=== PATIENT | male | born 1935 | race Caucasian/White ===

== ENCOUNTER 2017-01-16 20:54 | Inpatient (IN) | payer MEDICARE ==
[~2017-01-16] VITALS: Ht 180.3 cm; Wt 103.1 kg
[~2017-01-16 20:54] MED LIST: ATRV10T PO; CARV6.25 PO; FURO40TA4 PO; GLIP2.5T2 PO; LISI2.5T PO; OMEG500C3 PO; POTA10TA38 PO; PRE10 PO
[2017-01-16 21:05] VITALS: BP 100/44; PULSE 80; RESP 23; O2SAT 96
[2017-01-16 21:26] VITALS: BP 94/40; PULSE 84; RESP 21; O2SAT 95
--- NOTE | 2017-01-16 21:26 | ED.REPORT ---
HPI-Trauma Minor / Fall Date of Service Jan 16, 2017 ED Provider: Jg Joseph MD The pt is an 81 y/o male with a hx of prostate cancer (on chemotherapy), CHF, DM , and HTN who presents to the ED via EMS complaining of a ground level fall after his "back gave out" just prior to arrival. He hit his back on the wall and his head on the shower door upon falling. He denies loss of consciousness, dizziness, abdominal pain, and any other sx. His BP en route was 80/62. His BP in the ED was 84/44 after 500ml of bolus. Code status: Full code Nursing Notes Stated Complaint: GLF,GENERAL WEAKNESS Chief Complaint: Multiple Trauma/Fall Nursing Notes Reviewed: Yes Allergies: Coded Allergies: acetaminophen (Verified Adverse Reaction, Severe, "I get saw-tooth kessler in my eyes", 03/02/15) Scheduled Atorvastatin (Lipitor) 10 Mg Tab 10 MG PO HS Carvedilol (Coreg) 6.25 Mg Tablet 6.25 MG PO DAILY Furosemide (Furosemide) 40 Mg Tablet 40 MG PO DAILY Glipizide ER (Glipizide ER) 2.5 Mg Tab.er.24 2.5 MG PO MORNING with breakfast. Lisinopril (Lisinopril) 2.5 Mg Tablet 2.5 MG PO DAILY [place]-3 Fatty Acids (Fish Oil) 500 Mg Capsule Unknown Dose PO DAILY clam oil supplement Potassium Chloride (Potassium Chloride) 10 Meq Tab.er.prt 20 MEQ PO DAILY TAKE WITH FOOD Prednisone (PredniSONE) 10 Mg Tablet 10 MG PO DAILY Scheduled PRN Spironolactone/HCTZ 25-25 mg (Spironolactone/HCTZ 25-25 mg) 1 Each Tablet 1 TABLET PO DAILY PRN PRN For Urinary Retention General Time Seen by MD: 21:19 Chief Complaint Fall Hx Obtained From: Patient Arrived By: Ambulance Onset Occurred: Just prior to arrival Symptom Duration: Since onset Severity: Current: No pain currently Severity: Maximum: No pain Recent Healthcare: No recent doctor visit Past Medical History Past Medical History 1. Metastatic castrate resistant prostate cancer, originally diagnosed with hormone sensitivity back in 2001. 2. Radiation to the lower lumbar spine and sacrum, completed December 08, 2013, with a correlative drop in PSA. 3. Diabetes. 4. Pleural effusions, fluid overload, managed by Dr. Arenas in the past. No malignancy found. 5. Overweight. 6. Negative bronchoscopy in 2010, associated with workup for pleural effusions. 7. Bone scan October 01, 2013, compared to September 2012 previous bone scan. September 2013 was stable, to perhaps even slightly improved, compared with the earlier. Past Surgical History Bilateral knee repair Hernia repair Smoking History Never Smoker Social History Alcohol Use: Denies alcohol use Drug Use: Denies drug use Other Social History: Ambulatory Status Independent Review of Systems Reports: back weakness Neurologic: Denies: Change LOC, Dizziness Complete sys rev & neg: except as marked. GI: Denies: Abdominal pain Physical Exam Initial Vital Signs Vital Signs (First) Date Time Temp Pulse Resp B/P Pulse Ox O2 Delivery O2 Flow Rate FiO2 01/16/17 21:05 36.7 80 23 100/44 96 Room Air Initial VS: Reviewed, Vital signs abnormal Head / Eyes: Atraumatic, Normocephalic Respiratory: Breath sounds normal, Clear to auscultation, No respiratory distress Abdomen / GI: Soft, Non-tender, No guarding, No rebound, No distention Extremities: Vascular intact, Neuro intact, No swelling, No tenderness Skin: Warm, Dry, No cyanosis Neurologic: Alert, Oriented, Nonfocal General/Constitutional: Awake, Alert, No acute distress, Cooperative Appearance / Presentation: Positive: Pale Not diaphoretic Neck: Atraumatic, Supple, Full range of motion, No swelling, Non-tender Cardiovascular: No gallop, No rubs, Pulses = bilaterally Heart Rate / Rhythm: Positive: Irregular rhythm Femoral pulses present bilaterally. III/ holosystolic murmur. Interpretation & Diagnostics CT abd and chest Conclusion: No aortic aneurysm or dissection. Diffuse osteosclerotic bony metastases. Enlarged right paratracheal lymph node. Right hepatic dome lesion, likely a hemangioma. Indeterminate hypodense anterior right liver lesion, possible a complex cyst, atypical hemangioma or metastasis. Small bilateral pleural effusions with dependent atelectasis/infiltrates. Signed by Dr. Sharon Ferreira 01/17/17 01:38 Lab Results Interpretation Result Diagram: 01/17/17 0415 01/16/17 2136 Test 01/16/17 21:36 01/16/17 21:41 01/17/17 00:00 Sodium Level 128mEq/L (134-144) Potassium Level 3.9mEq/L (3.5-5.2) Chloride Level 89mEq/L (97-108) Carbon Dioxide Level 18mmol/L (18-29) Blood Urea Nitrogen 25mg/dL (8-27) Creatinine 1.24mg/dL (0.76-1.27) Estimat Glomerular Filtration Rate 60mL/min (>59) Glucose Level 189mg/dL (60-99) Calcium Level 8.4mg/dL (8.5-10.1) Magnesium Level 2.2mg/dL (1.6-2.6) Total Bilirubin 0.6mg/dL (0.0-1.2) Aspartate Amino Transf (AST/SGOT) 21U/L (0-50) Alanine Aminotransferase (ALT/SGPT) 7U/L (0-44) Alkaline Phosphatase 234U/L (25-160) Pro-B-Type Natriuretic Peptide 1989pg/mL (0-486) Total Protein 6.7g/dL (6.4-8.4) Albumin 3.3g/dL (3.4-5.0) Prothrombin Time 12.0sec (8.1-12.5) Prothromb Time International Ratio 1.12ratio Urine Color Yellow (YELLOW) Urine Appearance Clear (CLEAR,HAZY) Urine pH 5.5 (5.0-8.0) Urine Specific [place] 1.010 (1.003-1.035) Urine Protein Tracemg/dL (NEG,TRACE) Urine Glucose (UA) Negativemg/dL (NEGATIVE) Urine Ketones Tracemg/dL (NEGATIVE) Urine Occult Blood Negative (NEGATIVE) Urine Nitrite Negative (NEGATIVE) Urine Bilirubin Negative (NEGATIVE) Urine Urobilinogen Normalmg/dL (NORMAL) Urine Leukocyte Esterase Negative (NEGATIVE) Urine RBC 0-2/hpf (0-2) Urine WBC 0-5/hpf (0-5) Urine Epithelial Cells Few/hpf (NONE-MOD) Urine Crystals None seen (NONE SEEN) Urine Bacteria Few/hpf (NONE-FEW) Urine Hyaline Casts None/lpf (NONE) Urine Granular Casts None seen (NONE SEEN) Urine Waxy Casts None seen (NONE SEEN) Urine Red Blood Cell Casts None seen (NONE SEEN) Urine White Blood Cell Casts None seen (NONE SEEN) Urine Mucus None seen (None Seen) Urine Trichomonas None seen (NONE SEEN) Urine Yeast None (NONE SEEN) Urinalysis Comment None Urine Culture Reflexed Not indicated Hold Urine Received (Received) Lab Results Interpretation: Anemia, mild elevation of nonfasting glucose ECG Interpretation ECG Interpretation: A-fib. Rate 83. Ventricular premature complex. RBBB and LAFB Time: 22:59 Interpreted by: ED physician CT Head Interpretation No CT evidence of hemorrhage, mass, or acute infarct. Signed by Dr. Eris Zuñiga 01/16/17 22:38 Study: Head CT no contrast Interpretation / Wet Read by: Interpret - Radiologist Re-Eval/Medical Decision Med Decision/Clinical Course 81-year-old male with couple of days of vascular instability as evidenced by cold extremities and lightheadedness with standing. He was cleaning the toilet and fell. This sounds like a syncopal episode although it's not real clear that he lost consciousness. He did hit his head. He is not on blood thinner and his CT scan is negative. He is noted to be in A. fib, and I can find no evidence of this previously in his record. He does not recall ever being told he had A. fib. His troponin is mildly elevated and he is quite anemic. EKG shows A. fib without ST or T-wave changes.. CT angio of his chest and abdomen shows no evidence of great vessel disease, but there is bilateral pleural effusions with atelectasis. He will be admitted to the hospital service. Source of Hx: Old records Re-Evaluation/Progress : Time of Eval: 01:42 Re-Evaluation/Progress Note: Rechecked pt. Discussed lab results, imaging results,diagnosis and plan to admit. Pt understands and agrees with the plan for admission. All questions addressed. Consultation : Referral / Consult Name: Federico Gottlieb MD Consulted With: Hospitalist Call Returned at: 02:28 Washer Engineer: Will see patient, Agrees with eval, Agrees with plan, Accepts admit Counseled Regarding: Diagnosis, Lab results, Need for admission Discharge & Departure Impression: Primary Impression: A-fib Atrial fibrillation type: unspecified Qualified Code: I48.91 - Unspecified atrial fibrillation Additional Impressions: Fall from ground level Syncope Syncope type: unspecified Qualified Code: R55 - Syncope and collapse HTN (hypertension) Hypertension type: unspecified secondary hypertension Qualified Code: I15.9 - Secondary hypertension, unspecified Disposition: ADMITTED TO HOSPITAL Referrals: Natalie Guillen PA-C Attestation Portions of this note were transcribed by Melissa Irene. I,, personally performed the history,physical exam and medical decision-making;I reviewed and confirmed the accuracy of the information in the transcribed note. Signed by Antonio Herrera. 01/16/17 copies to: Natalie Guillen PA-C, Howard L MD Jan 16, 2017 21:26 Melissa Irene Jan 16, 2017 21:34
[2017-01-16 21:31] VITALS: BP 102/50; PULSE 90; RESP 22; O2SAT 97
[2017-01-16] MEDS ORDERED: 0.9% Sodium Chloride 500 ML IV ONE (21:35)
[2017-01-16 21:39] LABS: BASOPHILS % (AUTO) 0.1 % (0-3); EOSINOPHILS % (AUTO) 0 % (0-5); MONOCYTES % (AUTO) 10.2 % (4-12); Mean Corpuscular Hemoglobin 26.1 pg (27.0-35.0); Mean Corpuscular Volume 80.8 fL (81-100); NEUTROPHILS % (AUTO) 75.2 % (40-74); Platelet Count 311 bil/L (150-400)
[2017-01-16 21:56] LABS: INR 1.12 ratio
[2017-01-16 22:06] LABS: Magnesium 2.2 mg/dL (1.6-2.6); TROPONIN T 0.021 ug/L (0.0-0.011)
[2017-01-16 22:11] VITALS: BP 100/54; PULSE 90; RESP 20; O2SAT 94
[2017-01-17] VITALS (11 sets, daily range): BP systolic 95–188; BP diastolic 47–69; PULSE 66–91; RESP 16–20; O2SAT 94–98
[2017-01-17] MEDS ORDERED: Polyethylene Glycol (PEG) 17 Gm Powder PO PRN (02:40)
[2017-01-17] MEDS ORDERED: Ondansetron 2 mg/mL 2 mL Inj IVPUSH PRN (02:40)
[2017-01-17] MEDS ORDERED: Alum-Mag Hydrox-Simeth 30 mL Suspension PO PRN (02:40)
--- NOTE | 2017-01-17 02:46 | PCM.HPMED ---
Subjective Date of Service Jan 17, 2017 Primary Provider: Admitting Physician: Primary Care Physician: Wilian,[facility] Residency Attending Physician: Chief Complaint: GLF History of Present Illness: 81-year-old gentleman with ten-year history of metastatic prostate cancer, type II diabetes, hypertension, NATY, and diastolic heart failure who presents to emergency department due to a ground-level fall suffered yesterday evening (01/16 ) while he was cleaning his bathroom. Per the patient he was bent over while scrubbing the toilet at which time his back spasmed and he was unable to become upright again. He states he then fell onto his back and hit his head, with a bouncing off the floor and door. He was then unable to get off the floor and his daughter called EMS. He denies ever losing consciousness, lightheadedness, dizziness, diplopia, chest pain or shortness of breath, or new neurological symptoms. Patient states he is not had a fall within the last year. In the emergency department the patient was given half a liter of normal saline ; CT of the head was negative for hemorrhage and CT abdomen and pelvis are available in appropriate section. Blood work demonstrated a white count of 11, decreasing hematocrit from 9.5-8.1 with a microcytic component, and normal platelets. Patient had a very mild troponin elevation, BMP and nearly 2000, and alkaline phosphatase that has doubled since his previous labs on 01/14. Review of Systems: Complete review of systems performed; pertinent positives and negatives per history of present illness, all other systems reviewed and are negative Allergies Coded Allergies: acetaminophen (Verified Adverse Reaction, Severe, "I get saw-tooth kessler in my eyes", 03/02/15) Home Medications Atorvastatin (Lipitor) 10 Mg Tab 10 MG PO HS Carvedilol (Coreg) 6.25 Mg Tablet 6.25 MG PO DAILY Furosemide (Furosemide) 40 Mg Tablet 40 MG PO DAILY Glipizide ER (Glipizide ER) 2.5 Mg Tab.er.24 2.5 MG PO MORNING with breakfast. Lisinopril (Lisinopril) 2.5 Mg Tablet 2.5 MG PO DAILY [place]-3 Fatty Acids (Fish Oil) 500 Mg Capsule Unknown Dose PO DAILY clam oil supplement Potassium Chloride (Potassium Chloride) 10 Meq Tab.er.prt 20 MEQ PO DAILY TAKE WITH FOOD Prednisone (PredniSONE) 10 Mg Tablet 10 MG PO DAILY PMH Metastatic prostate cancer Type II diabetes Obesity Hypertension NATY History of pleural effusions Diastolic heart failure Surgical History Orchiectomy Prostate resection Family History Father has an unknown health history Mother of leukemia Social History Hx Alcohol Use: Yes (very little ) Hx Substance Use: No Hx Tobacco Use: No Smoking Status: Never Smoker Exam Vital Signs Vital Sign - Last Date Time Temp Pulse Resp B/P Pulse Ox O2 Delivery O2 Flow Rate FiO2 01/17/17 01:20 81 17 107/56 98 Room Air 01/16/17 21:05 36.7 Intake and Output 01/16/17 01/16/17 01/17/17 Cumulative From/Thru 15:00 23:00 07:00 01/16/17 21:05 - 01/16/17 23:35 Intake Total 500 ml 500 ml Balance 500 ml 500 ml Intake IV Total 500 ml 500 ml Exam General: Pleasant appearing female/male, no acute distress HEENT: PERRLA, EOMI, nonicteric, membranes moist Lymph: No lymphadenopathy Cardio: Regular rate and rhythm no murmurs rubs or gallops Respiratory: CTA bilaterally, no wheezes, no crackles Abdomen: Soft, positive bowel sounds, nontender, nondistended Extremities: No edema, 4 x 4 strength, sensation intact Psych: Appropriate mood and affect Neuro: CN II through XII grossly intact, sensation intact throughout Skin: No rash Lab and Diagnostics Result Diagram: 01/16/17223301/16/172135 Assessment & Plan 81-year-old gentleman with ten-year history of metastatic prostate cancer, type II diabetes, hypertension, NATY, and diastolic heart failure who presents to emergency department due to a ground-level fall suffered yesterday evening (01/16 ) while he was cleaning his bathroom. Ground-level fall without syncope; present admission; ongoing -Patient had a fall at home with his head hitting the wall in the shower door -Initial CT negative for hemorrhage; official read pending -CT of the chest abdomen revealed no dissection or aneurysm -Neurochecks q2 hours -Patient able to take fluid PO -Orthostatics in am -Leukocytosis likely due to stress reaction New onset a-fib with mildly elevated troponin; present on admission; ongoing -Denies prior hx of a-fib -EKG consistent with A-fib and RBBB -Rate controlled at 83 -Currently holding anticoagulation until tomorrow for post traumatic observation Back pain second to spasm; present on admission; ongoing -Pain is improved since admission -Not on outpatient pain medications -Can treat with baclofen if needed, or OMT if purple team -1-2mg morphine for additional pain Elevated alkaline phosphatase; present on admission; ongoing -Previous elevation 2 days ago has now doubled, likely due to metastatic vs cysts/hemagioma seen on CT -Patient still has gallbladder but no other signs/symptoms of biliary obstruction -US of RUQ -Recheck in AM Hyponatremia with AG of 23; present on admission; ongoing -Urine osmolality and sodium ordered -No fluids as patient does not appear to be dry Microcytic hypochromic anemia; present on admission; ongoing -Presents with Hgb 9.5 that decreased to 8.1; MCV 80.8 and MCH 26.1 -Iron studies and follow-up with iron supplementation -Could also be due to his chemotherapy Type II diabetes; present on admission; ongoing -Last A1c was 6.1 last year -Home medication: Glipizide -Hold glipizide -Low dose correctional -Heart healthy/diabetic diet Metastatic prostate cancer-stable- last note by Dr. Medina reviewed; currently on Xtandi Hypertension-on lisinopril, spironolactone, coreg and torsemide NATY-to bring in home CPAP Diastolic heart failure- on lisinopril, spironolactone, coreg and torsemide Disposition: Patient has been admitted to the general medical floor under observation Pain Evaluation: Adequate Pain Control GI Prophylaxis: H2 chicho VTE Prophylaxis Indicated: Contraindicated Resuscitation Status: DNR/DNI:Do Not Resuscitate/Intubate Attending Statement The patient was seen and examined together with Dr. Brandon on 01/17 and I agree with the history, exam and plan as outlined in the note above. Jon Brandon DO Jan 17, 2017 02:46 Federico Gottlieb MD Jan 17, 2017 06:20
[2017-01-17 04:12] LABS: APPEARANCE,URINE CLEAR (CLEAR,HAZY); COLOR,URINE YELLOW (YELLOW); OCCULT BLOOD,URINE NEGATIVE (NEGATIVE); PH,URINE 5.5 (5.0-8.0); UROBILINOGEN,URINE NORMAL (NORMAL)
[2017-01-17 04:32] LABS: BASOPHILS % (AUTO) 0.1 % (0-3); EOSINOPHILS % (AUTO) 0.2 % (0-5); Mean Corpuscular Hemoglobin 25.4 pg (27.0-35.0); Mean Corpuscular Volume 80.9 fL (81-100); NEUTROPHILS % (AUTO) 66.3 % (40-74); Platelet Count 271 bil/L (150-400)
[2017-01-17] MEDS ORDERED: SPIR1TAB2 PO (04:35)
[2017-01-17] MEDS ORDERED: Glucose 40% Oral Gel 15 Gm Tube PO PRN (04:35)
--- NOTE | 2017-01-17 07:20 | NUR ---
Admit Admitted to room # 20020, with personal possessions, Room Air, Saline locked, A&O x3 using call light appropriately. Tele : A-fib 81's
[2017-01-17 07:42] LABS: Unsaturated Iron Binding 149.2 ug/dL
[2017-01-17] MEDS: Insulin LISPRO 300 Unit/3 mL Inj SUBQ SCH ×4 (07:58→21:27)
--- NOTE | 2017-01-17 08:07 | DRSVH ---
PROCEDURE: CT BRAIN WITHOUT CONTRAST ([id number]) INDICATIONS: back pain, syncope, hypotension, pallor TECHNIQUE: Noncontrast 4.5 mm thick angled axial sections acquired from the foramen magnum to the vertex, with c oronal reformats. COMPARISON: None. FINDINGS: Image quality: Excellent. CSF spaces: Basal cisterns are patent. No extra-axial fluid collections. The ventricles are symmet zee in size and shape. Brain: No intracranial bleeds or masses. There is cerebral volume loss for age, with resultant vent ricular and sulcal prominence. There are periventricular and deep white matter chronic small vessel ischemic changes. There is intracranial internal carotid artery atherosclerosis. Skull and face: Calvarium and visualized facial bones appear intact, without suspicious lesions. Sinuses: Visualized sinuses and mastoids are clear. IMPRESSION: Mild microvascular atherosclerotic change in the deep white matter of each hemisphere, an d no acute disease is found. No trauma after syncope is seen. Note: These findings are concordant with the preliminary interpretation. Dictated by: Cliff Gustafson M.D. on 01/17/2017 at 8:05 Approved by: Cliff Gustafson M.D. on 01/17/2017 at 8:05
[2017-01-17 08:24] LABS: OSMOLALITY, URINE 580 mOs/kH2O (250-1200)
--- NOTE | 2017-01-17 09:16 | DRSVH ---
PROCEDURE: CT ANG CHEST/ABD W/WO CONTRAST ([id number]) INDICATIONS: back pain, syncope, hypotension, pallor TECHNIQUE: Precontrast 5 mm thick sections acquired from the lung apices to the iliac crests. After the adminis tration of intravenous contrast, 3 mm thick sections again acquired from the lung apices to the iliac crests. 3-dimensional maximum intensity projection (MIP) oblique sagittal and coronal reformats wer e then acquired, and/or 3-dimensional volume rendering reformats. For radiation dose reduction, the following was used: automated exposure control. COMPARISON: [facility], CT, CT CHEST ABD PELVIS W CON, 07/20/2016, 10:48. [facility], CT, CT CHEST W CON, 05/18/2015, 15:21. CT, CHEST WITH CONTRAST, 11/22/2010, 7:25. FINDINGS: Image quality: Excellent. AORTA: Intramural hematoma: Absent. Maximum hematoma thickness: Not applicable. Focal contrast enhancement: Intramural blood pool (< 2 mm neck or imperceptible communication with aortic lumen): Absent. Ulcer-like projection (broad communication with aortic lumen > 3 mm): Absent. Dissection: Absent. Fady classification: Not applicable. Maximum aortic diameter: 4.6 cm. [If [place] A dissection, > 5.0 cm has a poorer prognosis. If [place] B dissection, > 4.0 cm has a poorer prognosis.] Periaortic hematoma: Absent. CHEST: Lungs and pleura: Small bilateral pleural fluid collections noted. Atelectasis noted in the dependent portions of the lung bases. Central and peripheral airways are patent and normal in caliber. Mediastinum: Heart size is normal. No pericardial effusion. Atherosclerotic calcifications are note d in the aorta, great vessels and the coronary vasculature. Right paratracheal ahmet mass has increas ed in size compared to 07/20/2016 measuring approximately 2.3 x 2.7 cm in the current study (1.9 x 2.3 cm previously). No hilar adenopathy by size criteria. Central pulmonary arteries are normal in size . Esophagus is normal in caliber. No hiatal hernias. Bones and chest wall: Left chest wall Port-A-Cath is stable in appearance. No axillary adenopathy by size criteria. Thyroid gland is within normal limits are visualized in. No suspicious bony lesions. No vertebral body compression fractures. ABDOMEN: Vasculature: Celiac trunk and mesenteric arteries are patent. Renal arteries are also patent. Solid organs: Liver and spleen are normal in size. Heterogeneously enhancing mass in right hepatic d ome is not significantly changed in size compared to 07/20/16. Hepatic cyst is stable compared to prio r exams. No new hepatic lesions are identified. Gallbladder is within normal limits. Biliary system is non dilated. Pancreas enhances normally. No adrenal nodules. Both kidneys are normal in size an d enhancement, without hydronephrosis. Peritoneum and bowel: No free fluid or air. Bowel loops are normal in caliber and wall thickness. Nodes and vessels: No retroperitoneal or mesenteric adenopathy by size criteria. Inferior vena cava is normal in morphology. Bones: Multiple sclerotic lesions scattered throughout the osseous skeleton both known skeletal metas tatic disease not definitely changed compared to 07/20/16. No vertebral body compression fractures. Miscellaneous: No ventral hernias. IMPRESSION: 1. No evidence of aortic dissection or aortic aneurysm. 2. Small bilateral pleural effusions. 3. Right paratracheal mediastinal lymphadenopathy increased in size compared to 07/20/16. 4. Extensive skeletal metastatic disease not significantly changed compared to 07/20/16. 5. Heterogeneously enhancing lesion in the right hepatic dome is stable compared to prior examination . 6. Atherosclerosis including dense atherosclerotic calcifications in the coronary vasculature. Dictated by: Susan Mistry MD, PhD on 01/17/2017 at 9:03 Approved by: Susan Mistry MD, PhD on 01/17/2017 at 9:15
--- NOTE | 2017-01-17 10:30 | NUR ---
Communication Spoke with Amita, patient's daughter in law, regarding patient's condition. Amita states that he has been taking Xtandi for his prostate cancer. MD notified after he rounded with patient.
[2017-01-17] MEDS ORDERED: ENZA40CA PO (11:41)
--- NOTE | 2017-01-17 11:50 | NUR ---
Activity Patient needs moderate assistance getting out of bed and with ambulation. When asked about pain, patient states he does not need any PRN medication but knows it's available.
--- NOTE | 2017-01-17 14:09 | NUR ---
Social Work: initial Assessment/Multidisciplinary Rounds D: Per EMR review, pt is an 81 year old male admitted for AFIB, Sycope, Fall. Patient is Medicare with AARP supplement; pt states he has no LTC or VA benefits. PCP is the [facility]. NOK is Génesis Fraire s/o, . Advanced directives not completed- information provided. No Readmit score admitted at this time. Pt discussed in multidisciplinary round with attending provider. Patient will likely require skilled rehab at time of discharge. CM Order placed to coordinate SNF. INTERVENTIONAL PHYSIATRIST met with the patient, s/o and DIL at bedside. Social work/dcp role explained, contact information and discharge planning checklist provided. See initial assessment. Pt lives in [facility] [facility] with his s/o and her daughter. The patient reports increased weakness over the last week requiring the use of a FWW. The patient has never required HH or skilled rehab and was driving until a week ago. INTERVENTIONAL PHYSIATRIST reviewed SNF recommendations. The patient states "I do not like this plan." He is not very receptive to secondary planning but kept SNF CHOICE LIST for review. DIL and s/o both agree patient needs SNF but seem overwhelmed with the prospect of making preferences at this time. PPW on Chart PASSR in folder. A: Pt who will likely require skilled rehab at discharge, per provider. P: Evolving; the patient is not receptive to SNF plan but family is reviewing discharge planning checklist. INTERVENTIONAL PHYSIATRIST to follow up with them to re-discuss these preferences. ALFIE Shipman Addendum: 01/17/17 at 1419 by BARRIE CARRERA Amended: Links added. Addendum: 01/17/17 at 1514 by BARRIE DEAL SS INTERVENTIONAL PHYSIATRIST met with patient and his . Their preference is for Richa Andujar with [facility] Merle Lange as a backup. INTERVENTIONAL PHYSIATRIST requested Surveying Teacher provider referral.
--- NOTE | 2017-01-17 15:53 | DRSVH ---
PROCEDURE: US ABDOMEN INDICATIONS: elevated alk phos with mets TECHNIQUE: Real-time scanning was performed of the abdominal and retroperitoneal organs, with image documentatio n. COMPARISON: [facility], CT, CT CHEST ABD PELVIS W CON, 07/20/2016, 10:48. [facility] Ul[facility]ound, US, ABDOMEN SONOGRAM, 09/02/2013, 8:00. FINDINGS: Liver length: 17.21 cm Gallbladder Wall Thickness: 3.0 mm CHD: 3.10 mm CBD: 3.30 mm Spleen length: 12.49 cm Right kidney length: 11.08 cm Left kidney length: 10.75 cm Aorta(Mid): 1.79 cm Aorta(Distal): 1.78 cm RCIA: 1.0 cm LCIA: 0.9 cm Liver: Liver is normal in size and homogeneous in echotexture. 2 solid mass is again seen within th e liver similar to prior CT scan the largest measuring 5.3 x 5.3 cm and the smaller 4.3 x 3.7 cm. Gallbladder: No gallstones identified. Normal gallbladder wall. No pericholecystic fluid. Negativ e sonographic Garber sign. Biliary ducts: Intrahepatic bile ducts are non-dilated. Extrahepatic bile duct caliber is normal. Normal is 6-7 mm or less in diameter, or 10 mm or less post-cholecystectomy. Pancreas: Not well-seen. Spleen: Spleen is normal in size and homogeneous in echotexture. Kidneys: Kidneys are normal in size and echotexture. No hydronephrosis or nephrolithiasis. No eliu d masses. Aorta: Visualized aorta is normal in caliber at less than 3 cm. Iliacs: Proximal common iliac arteries are normal in caliber at less than 2.5 cm. IVC: Intrahepatic inferior vena cava is patent. Miscellaneous: No free abdominal fluid. Right pleural effusion redemonstrated. IMPRESSION: 1. Hepatic metastatic lesions redemonstrated similar to prior CT scan in this patient with history of metastatic prostate cancer. 2. Small right pleural effusion. Dictated by: Nabeel AVALOS Interpreted: Sheila Muñoz MD on 01/17/2017 at 10:23 Approved by: Sheila Muñoz M.D. on 01/17/2017 at 15:51
--- NOTE | 2017-01-17 15:59 | NUR ---
SNF REFERRAL NEW : Gave access and faxed facesheet to RON and Richa Andujar per [employer] and order
--- NOTE | 2017-01-17 16:09 | DRSVH ---
PROCEDURE: X-RAY LEFT HIP COMPLETE, MINIMUM TWO VIEWS ([id number]) INDICATIONS: fall TECHNIQUE: 2 views of the hip were acquired. COMPARISON: [facility], CT, CT CHEST ABD PELVIS W CON, 07/20/2016, 10:48. [facility], NM, NM BONE SCAN WHOLE BODY, 07/20/2016, 11:18. [facility], CR, XR HIP 2VW LT, 01/04/2015, 13:40. FINDINGS: Bones: No fractures or dislocations. Blastic appearance of the left obturator ring. The visualized pelvic ring appears intact. Moderate joint narrowing with periarticular osteophyte formation. Soft tissues: No suspicious soft tissue calcifications or masses. Vascular calcifications indicate atherosclerosis. IMPRESSION: No displaced fracture seen. If there is continued pain, followup exam or additional imaging such as MRI or CT could be performed for further assessment. Blastic appearance of the left obturator ring fracture consistent with prostatic bony metastasis as n oted on prior imaging. Dictated by: Nabeel AVALOS Interpreted: Sheila Muñoz MD on 01/17/2017 at 13:23 Approved by: Sheila Muñoz M.D. on 01/17/2017 at 16:07
--- NOTE | 2017-01-17 18:21 | PCM.PNMED ---
Subjective Date of Service Jan 17, 2017 Subjective Subjective: Patient states that he is doing relatively well today, indicates pain in the left hip, which has been constant since his fall. Events Overnight: No acute events overnight. ROS: Denies fever/chills, nausea/vomiting, headache, weakness, abdominal pain, chest pain, shortness of breath, increased swelling in hands or feet. Exam Vital Signs Vital Sign - Last Date Time Temp Pulse Resp B/P Pulse Ox O2 Delivery O2 Flow Rate FiO2 01/17/17 17:15 36.9 01/17/17 16:06 86 16 120/69 97 Room Air Intake and Output 01/16/17 01/16/17 01/17/17 Cumulative From/Thru 15:00 23:00 07:00 01/16/17 21:05 - 01/17/17 06:22 Intake Total 700 ml 700 ml Output Total 100 ml 100 ml Balance 600 ml 600 ml Intake Oral 200 ml 200 ml IV Total 500 ml 500 ml Output Urine Total 100 ml 100 ml Exam General: No acute distress, well-developed, well-nourished Head: Normocephalic, atraumatic. External ears without defect. Eyes: Pupils equal, round, and reactive to light and accommodation. Anicteric sclerae, moist conjunctivae. Neck: Normal range of motion, no lymphadenopathy noted Cardiovascular: Regular rate and rhythm with no murmurs, rubs, or gallops appreciated Pulmonary: Clear to auscultation bilaterally with no crackles, wheezes, or rhonchi. Normal respiratory effort with no use of accessory muscles. Abdomen: Bowel tones present. Soft, nontender, nondistended. Extremities: No clubbing, cyanosis, edema Skin: Normal temperature, turgor, and texture; no rash, ulcers, or subcutaneous nodules appreciated. Neurological: Cranial nerves grossly intact. Reflexes, coordination, and sensory function within normal limits. Normal muscle strength, tone, and bulk. Psychiatric: Normal mood and affect. Alert and oriented to person, place, and time IVs and Medications Medications Reviewed: Medications were reviewed in detail Lab and Diagnostics Result Diagram: 01/17/17 0415 01/16/17 [id number] Assessment & Plan 81-year-old gentleman with ten-year history of metastatic prostate cancer, type II diabetes, hypertension, NATY, and diastolic heart failure who presents to emergency department due to a ground-level fall suffered yesterday evening (01/16 ) while he was cleaning his bathroom. Ground-level fall without syncope; present admission; ongoing - Patient had a fall at home with his head hitting the wall in the shower door - Initial CT negative for hemorrhage; official read pending - CT of the chest abdomen revealed no dissection or aneurysm - Neurochecks normal - Orthostatics normal - PT saw the patient and states that fall was likely due to chronic back problem , and the patient's story is consistent with this. - Leukocytosis likely due to stress reaction - Hip x-ray obtained on 01/17 due to tenderness to palpation of the left hip. Imaging not suggestive of fracture. New onset a-fib with mildly elevated troponin; present on admission; ongoing -Denies prior hx of a-fib -EKG consistent with A-fib and RBBB -Currently rate controlled -Discussed possible anticoagulation on 01/18 Back pain second to spasm; present on admission; ongoing -Pain is improved since admission -Not on outpatient pain medications -Can treat with baclofen if needed, -1-2mg morphine for additional pain Elevated alkaline phosphatase; present on admission; ongoing -Previous elevation 2 days ago has now doubled, likely due to metastatic vs cysts/hemagioma seen on CT -Patient still has gallbladder but no other signs/symptoms of biliary obstruction -US of RUQ negative for evidence of obstruction, consider MRCP if alkaline phosphatase continues to increase -Recheck with morning labs Hyponatremia with AG of 23; present on admission; ongoing -Urine osmolality and sodium within normal limits -No fluids as patient does not appear to be dry Microcytic hypochromic anemia; present on admission; ongoing -Presents with Hgb 9.5 that decreased to 8.1; MCV 80.8 and MCH 26.1 -Iron studies and follow-up with iron supplementation -Could also be due to his chemotherapy Type II diabetes; present on admission; ongoing -Last A1c was 6.1 last year -Home medication: Glipizide -Hold glipizide -Low dose correctional -Heart healthy/diabetic diet Metastatic prostate cancer-stable- last note by Dr. Medina reviewed; currently on Xtandi resume 01/18 Hypertension-on lisinopril, spironolactone, coreg and torsemide, continue to hold NATY-to bring in home CPAP Diastolic heart failure- on lisinopril, spironolactone, coreg and torsemide continue to hold Disposition: Patient will likely require 1-2 more days of inpatient management prior to discharge home. GI Prophylaxis: H2 chicho Resuscitation Status: CPR: Attempt Resuscitation Attending Statement The patient was seen and examined together with Dr. Brand on 01/18/2017 and I agree with the history, exam and plan as outlined in the note above. . Jose Martin Brand DO Jan 17, 2017 18:20 Omar Ewing MD Jan 19, 2017 17:49
[2017-01-18] VITALS (8 sets, daily range): BP systolic 95–122; BP diastolic 57–70; PULSE 74–93; RESP 18–20; O2SAT 95–97
--- NOTE | 2017-01-18 04:02 | NUR ---
Shift summary Pt slept quietly most of this shift. Heavy 1 PA to BSC, unsteady gait. A-fib 80-100, LE edema. No CPAP worn while asleep but maintained O2 sat above 90. Denies pain/discomfort. Per day shift, plan to discuss anticoag tx today and discharge planning to SNF.
[2017-01-18 04:25] LABS: Mean Corpuscular Volume 80.2 fL (81-100)
[2017-01-18 04:57] LABS: TROPONIN T 0.011 ug/L (0.0-0.011)
[2017-01-18 05:21] LABS: Magnesium 2.3 mg/dL (1.6-2.6); Phosphorus 2.1 mg/dL (2.5-4.9)
[2017-01-18] MEDS ORDERED: predniSONE 10 mg Tablet PO SCH (08:30)
[2017-01-18] MEDS ORDERED: ENZALUTAMIDE PO SCH (08:30)
[2017-01-18] MEDS: Insulin LISPRO 300 Unit/3 mL Inj SUBQ SCH ×4 (09:08→21:53)
[2017-01-18] MEDS: Potassium Chloride 20 mEq SR Tablet PO SCH (09:39)
--- NOTE | 2017-01-18 11:39 | PCM.PNMED ---
Subjective Date of Service Jan 18, 2017 Subjective Subjective: Patient states that he is feeling better today, however states that he continues to have pain in the left hip, and continues to have mobilization difficulty secondary to this injury. Events Overnight: No acute events overnight. ROS: Denies fever/chills, nausea/vomiting, headache, weakness, abdominal pain, chest pain, shortness of breath, increased swelling in hands or feet. Exam Vital Signs Vital Sign - Last Date Time Temp Pulse Resp B/P Pulse Ox O2 Delivery O2 Flow Rate FiO2 01/18/17 08:45 88 01/18/17 08:37 36.7 20 95/57 96 Room Air Intake and Output 01/17/17 01/17/17 01/18/17 Cumulative From/Thru 15:00 23:00 07:00 01/16/17 21:05 - 01/18/17 05:06 Intake Total 1100 ml 400 ml 2200 ml Output Total 625 ml 500 ml 1225 ml Balance 475 ml -100 ml 975 ml Intake Oral 1100 ml 400 ml 1700 ml IV Total 500 ml Output Urine Total 625 ml 500 ml 1225 ml # Bowel Movements 0 0 Exam General: No acute distress, well-developed, well-nourished Head: Normocephalic, atraumatic. External ears without defect. Eyes: Pupils equal, round, and reactive to light and accommodation. Anicteric sclerae, moist conjunctivae. Neck: Normal range of motion, no lymphadenopathy noted Cardiovascular: Irregularly irregular rhythm with no murmurs, rubs, or gallops appreciated Pulmonary: Clear to auscultation bilaterally with no crackles, wheezes, or rhonchi. Normal respiratory effort with no use of accessory muscles. Abdomen: Bowel tones present. Soft, nontender, nondistended. Extremities: No clubbing, cyanosis, trace edema of the lower legs bilaterally edema, pain to palpation of the left hip Skin: Normal temperature, turgor, and texture; no rash, ulcers, or subcutaneous nodules appreciated. Neurological: Cranial nerves grossly intact. Reflexes, coordination, and sensory function within normal limits. Normal muscle strength, tone, and bulk. Psychiatric: Normal mood and affect. Alert and oriented to person, place, and time IVs and Medications Medications Reviewed: Medications were reviewed in detail Lab and Diagnostics Result Diagram: 01/18/17 0415 01/18/17 041 Assessment & Plan 81-year-old gentleman with ten-year history of metastatic prostate cancer, type II diabetes, hypertension, NATY, and diastolic heart failure who presents to emergency department due to a ground-level fall suffered yesterday evening (01/16 ) while he was cleaning his bathroom. Ground-level fall without syncope; present admission; ongoing - Patient had a fall at home with his head hitting the wall in the shower door - Initial CT negative for hemorrhage; official read pending - CT of the chest abdomen revealed no dissection or aneurysm - Neurochecks within normal limits - Orthostatics normal - PT saw the patient and states that fall was likely due to chronic back problem , and the patient's story is consistent with this. - Leukocytosis likely due to stress reaction - Hip x-ray obtained on 01/17 due to tenderness to palpation of the left hip. Imaging not suggestive of fracture. - Patient will likely require short-term rehabilitation in a intermediate facility prior to discharge home. New onset a-fib with mildly elevated troponin; present on admission; ongoing -Denies prior hx of a-fib -Troponins trending down -EKG consistent with A-fib and RBBB -Currently rate controlled -Discussed with Dr. Freitas on 01/18 his opinion on anticoagulation in this case , he stated that this should possibly be a discussion with palliative care the patient has long been diagnosed with metastatic prostate cancer, and the current oncologic therapies appear to be no longer effective. - He recommends discontinuing Xtandi at this point. Back pain second to spasm; present on admission; ongoing -Pain is improved since admission -Not on outpatient pain medications -Can treat with baclofen if needed, -1-2mg morphine for additional pain Elevated alkaline phosphatase; present on admission; ongoing -Previous elevation 2 days ago has now doubled, likely due to metastatic vs cysts/hemagioma seen on CT -Patient still has gallbladder but no other signs/symptoms of biliary obstruction -US of RUQ negative for evidence of obstruction, consider MRCP if alkaline phosphatase continues to increase -Recheck with morning labs Hyponatremia with AG of 23; present on admission; ongoing -Urine osmolality and sodium within normal limits -No fluids as patient does not appear to be dry Microcytic hypochromic anemia; present on admission; ongoing -Presents with Hgb 9.5 that decreased to 8.1; MCV 80.8 and MCH 26.1 -Iron studies and follow-up with iron supplementation -Could also be due to his chemotherapy Type II diabetes; present on admission; ongoing -Last A1c was 6.1 last year -Home medication: Glipizide -Hold glipizide -Low dose correctional -Heart healthy/diabetic diet Metastatic prostate cancer-stable- Dr. Medina came to the hospital to see the patient on 01/17 Hypertension-on lisinopril, spironolactone, coreg and torsemide, continue to hold NATY-to bring in home CPAP Diastolic heart failure- on lisinopril, spironolactone, coreg and torsemide continue to hold Disposition: Patient will likely require 1-2 more days of inpatient management prior to discharge to [facility]. GI Prophylaxis: H2 chicho Resuscitation Status: CPR: Attempt Resuscitation Attending Statement The patient was seen and examined together with Dr. Brand on 01/18/2017 and I agree with the history, exam and plan as outlined in the note above. . Jose Martin Brand DO Jan 18, 2017 11:39 Omar Ewing MD Jan 19, 2017 17:49
--- NOTE | 2017-01-18 18:53 | NUR ---
Activity/Pain Patient a/o x 3, forgetful at times. Patient c/o left hip pain x 2, meds given with good effect. Patient oob with walker and one person assist, gabby fair, but c/o sob with activity. H/H 8.05/31, aware, no new orders. See vitals, tele A fib IVCD.
--- NOTE | 2017-01-18 19:50 | PROG NOTE ---
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 He was admitted after a fall in his bathroom when he was trying to clean his toilet and lost his balance and fell over and has sustained a head impact and an obturator ring fracture. The left obturator ring fracture had a plastic appearance and it is not clear that this happened during this fall. He is currently being managed for pain related to the fall, receiving PT, also for atrial fibrillation, apparently new onset. In terms of his prostate cancer, he was last evaluated on November 15 for metastatic castrate-resistant prostate cancer. He had been treated with all agents available except for mitoxantrone and that occluded Lupron, bicalutamide, abiraterone, prednisone, enzalutamide, Taxotere, cabazitaxel, and even Provenge. He has been on monthly Zometa but we have decided to change that to every three months. As of November 15, he had a gradually increasing PSA but no major change in his pain symptoms and he was to be on observation only and to have stopped enzalutamide. Subjectively, he appears very weak. He is very comfortable with the idea of having to go to a intermediate for a while to gain strength back. He has no pain at this time and has modest appetite. OBJECTIVE: His vital signs show a temperature of 36.4, pulse 91, respiratory rate 18, blood pressure 118/61, pulse ox 96% on room air. I and O's show 1300 mL of p.o. intake. Head and neck: Moderate alopecia. Pupils equal, round, and reactive. No icterus. Oral mucosa is dry but without thrush or lesions. Lung gonzalez clear to auscultation. Cardiac rhythm is somewhat irregular, without murmur or JVD. Abdomen protuberant without palpable organomegaly. Extremities: Trace edema. LABORATORY VALUES: The white count is 9.2, hemoglobin 8.9, hematocrit 28.4, platelets 271. The BUN and creatinine 25 and 1.24, up from 0.87. Sodium 128, glucose 189. Calcium 8.4, albumin 3.3. The PSA has risen to 737.9 on January 14; previously 296.6 on November 15. The alkaline phosphatase has risen to 234, previously 178 on January 14. ASSESSMENT/RECOMMENDATIONS: Regarding his recent fall, I think this is a reflection of increased debilitation. Whether or not the atrial fibrillation predated this is to be determined; he will need to have some rehabilitation just to gain some strength back and he will need to have longer term management of his atrial fibrillation addressed of course. Regarding his prostate cancer, we are really at [facility] in terms of what to do for his prostate cancer; he has on repeated challenges in the past. Had a response to Taxotere, but he is so frail now that I believe that giving him systemic chemotherapy would be a bad idea for the time being. I have counseled the patient that we should just see how he recovers in terms of his ambulation and eating and I revisit the treatment of prostate cancer in about two weeks.
[2017-01-19] VITALS (10 sets, daily range): BP systolic 113–129; BP diastolic 61–76; PULSE 75–89; RESP 16–18; O2SAT 93–98
[2017-01-19 04:36] LABS: Mean Corpuscular Volume 80.9 fL (81-100)
--- NOTE | 2017-01-19 06:44 | NUR ---
Pain/tele Pt c/o hip pain 12/13 and received MS IVP, which was helpful per pt. Pt incont of bladder and required a full bed change this shift. Tele: AFIB hr 80-90s, IVCD, PVC per cardiac monitor. VSS. Care continues.
[2017-01-19] MEDS: Insulin LISPRO 300 Unit/3 mL Inj SUBQ SCH ×4 (08:00→20:16)
[2017-01-19] MEDS: Potassium Chloride 20 mEq SR Tablet PO SCH (09:35)
--- NOTE | 2017-01-19 10:07 | PROG NOTE ---
[address] [address] PROGRESS NOTE PATIENT: ERIBERTO SALCEDO : 1935 MR#: [id number] ADMIT: 01/17/2017 JOB ID: [id number] DATE: 01/18/2017 HOSPITAL ROUNDS: HISTORY OF PRESENT ILLNESS: This is an 81-year-old man who is being managed for atrial fibrillation and sequelae of a fall at home; the underlying condition is metastatic prostate cancer, which he has had for more than 10 years, mainly affecting bone. He returned today to discuss with him further his options for treating his prostate cancer; once he is stabilized from the standpoint of his cardiac and physical status it is recommended that he go to rehab at least for several weeks before attempting to go back home. DIAGNOSES SUMMARIZED: (From Dr. Brand's note): 1. Ground level fall without syncope. 2. Atrial fibrillation, new onset with mildly elevated troponin. 3. Type 2 diabetes. 4. Metastatic prostate cancer. Dr. Brand pointed out that one of the issues is whether he should be anticoagulated in the setting of atrial fibrillation and prostate cancer. SUBJECTIVE: The patient appears much better today. He is sitting in a chair and is talkative. Now wants to go home rather than rehab. I recommended that he take advantage of several weeks of rehab if he can do that. He states he is in no pain at this time and has a good appetite and has been up and around a little bit. OBJECTIVE: His vital signs show a temperature of 36.7, pulse 83, respiratory rate 18, blood pressure 110/70 pulse ox 96% on room air. LABORATORY VALUES: Show a white count of 8.4, hemoglobin 8.1, hematocrit 26.0 and platelets 264. His BUN and creatinine are 21 and 0.63. Alkaline phosphatase is elevated at 171 consistent with his known bony metastasis from prostate cancer. Calcium 7.8, albumin 2.9. Most recent PSA showed a dramatic rise from 296.6 on November 15 to 737.9 on January 14. This is the highest PSA he has ever had. Regarding his prostate cancer, he had a bone scan in July showing multiple stable foci of osseous uptake with one new lesion in the proximal right humeral shaft. Chest and abdomen CT performed on January 16, showed no aortic dissection, bilateral pleural effusions, some peritracheal mediastinal adenopathy increased since July, stable metastatic skeletal disease, heterogeneous enhancing of the lesion in the right hepatic dome also stable and that is sclerotic calcifications. Brain CT performed on January 16 showed no acute changes. An ultrasound of the abdomen showed two solid mass lesions similar to the prior CT scan measuring 5.3 and 4.3 cm consistent with metastatic disease. As noted before, the hip x-ray showed left upper greater ring fracture consistent with bony metastases. ASSESSMENT AND RECOMMENDATIONS: In terms of anticoagulation if this patient would benefit from long-term warfarin anticoagulation as I do not do not see a major contraindication unless he continues to be a fall risk and at this time if is worth going to rehab and seeing how his condition improves before making a final decision. Otherwise he will be placed on low dose aspirin as he is also at risk for thrombosis given his prostate cancer diagnosis. Regarding treatment of prostate cancer, he has received all known effective agents for prostate cancer over a many year period of time and is now showing progression in the liver and at least early progression of both. His condition has declined and this is in part why he experienced his loss of balance and fall; he is also overweight and will have increasing difficulty managing his weight as time goes on. Since there are no conventional additional therapies to offer him, he would need to go onto supportive care only or potentially the challenge of chemotherapy. Other investigational agents may be available, but his condition right now is not good enough to participate in any clinical trial. The plan is to see him as an outpatient and discuss with him again the limited options for managing his prostate cancer and decide what he would like to do.
--- NOTE | 2017-01-19 17:13 | NUR ---
Activity/Pain/Tele Patient a/o x 3, c/o left hip pain 8-10, IV Morphine x 2 given with good effect. Patient oob for all meals, amb in room and dougherty with walker and 1 person assist. Patient has slight dyspnea with activity. Patient showered this a.m. VSS, tele A fib IVCD PVC's.
--- NOTE | 2017-01-19 20:23 | PCM.PNMED ---
Subjective Date of Service Jan 19, 2017 Subjective Subjective: Patient states he is feeling relatively well today, sitting up in chair on exam. Continues to have pain in the left hip with ambulation Events Overnight: No acute events overnight. ROS: Left hip pain Denies fever/chills, nausea/vomiting, headache, weakness, abdominal pain, chest pain, shortness of breath, increased swelling in hands or feet. Exam Vital Signs Vital Sign - Last Date Time Temp Pulse Resp B/P Pulse Ox O2 Delivery O2 Flow Rate FiO2 01/19/17 12:55 36.7 80 16 129/76 98 Room Air Intake and Output 01/18/17 01/18/17 01/19/17 Cumulative From/Thru 15:00 23:00 07:00 01/16/17 21:05 - 01/19/17 06:04 Intake Total 940 ml 200 ml 3340 ml Output Total 975 ml 200 ml 2400 ml Balance -35 ml 0 ml 940 ml Intake Oral 940 ml 200 ml 2840 ml IV Total 500 ml Output Urine Total 975 ml 200 ml 2400 ml # Voids 1 3 4 # Bowel Movements 1 1 2 Exam General: No acute distress, well-developed, well-nourished Head: Normocephalic, atraumatic. External ears without defect. Eyes: Pupils equal, round, and reactive to light and accommodation. Anicteric sclerae, moist conjunctivae. Neck: Normal range of motion, no lymphadenopathy noted Cardiovascular: Irregularly irregular rhythm with no murmurs, rubs, or gallops appreciated Pulmonary: Clear to auscultation bilaterally with no crackles, wheezes, or rhonchi. Normal respiratory effort with no use of accessory muscles. Abdomen: Bowel tones present. Soft, nontender, nondistended. Extremities: No clubbing, cyanosis, trace edema of the lower legs bilaterally edema, pain to palpation of the left hip Skin: Normal temperature, turgor, and texture; no rash, ulcers, or subcutaneous nodules appreciated. Neurological: Cranial nerves grossly intact. Reflexes, coordination, and sensory function within normal limits. Normal muscle strength, tone, and bulk. Psychiatric: Normal mood and affect. Alert and oriented to person, place, and time IVs and Medications Medications Reviewed: Medications were reviewed in detail Lab and Diagnostics Result Diagram: 01/19/17 0303 01/19/17 030 Assessment & Plan 81-year-old gentleman with ten-year history of metastatic prostate cancer, type II diabetes, hypertension, NATY, and diastolic heart failure who presents to emergency department due to a ground-level fall suffered yesterday evening (01/16 ) while he was cleaning his bathroom. Ground-level fall without syncope; present admission; stable - Patient had a fall at home with his head hitting the wall in the shower door - CT head negative for hemorrhage - CT of the chest abdomen revealed no dissection or aneurysm - Neurochecks within normal limits - Orthostatics normal - PT saw the patient and states that fall was likely due to chronic back problem , and the patient's story is consistent with this. - Leukocytosis likely due to stress reaction secondary to fall - Hip x-ray obtained on 01/17 due to tenderness to palpation of the left hip. Imaging not suggestive of fracture. - Patient will likely require short-term rehabilitation in a fci facility prior to discharge home. New onset a-fib with mildly elevated troponin; present on admission; ongoing -Denies prior hx of a-fib -Troponins trending down -EKG consistent with A-fib and RBBB -Currently rate controlled -Discussed with Dr. Freitas on 01/18 his opinion on anticoagulation in this case , he stated that anticoagulation should be based on the patient's ability to progress through rehabilitation -This may also be a discussion with palliative care as the patient has long been diagnosed with metastatic prostate cancer, and the current oncologic therapies appear to be no longer effective. - Dr. Freitas recommends discontinuing Xtandi at this point, he will continue to follow-up as an outpatient. - Hospice consult obtained Back pain second to spasm; present on admission; ongoing - Pain is improved since admission - Not on outpatient pain medications - Oxycodone for pain as needed - Consider treatment with baclofen if needed Elevated alkaline phosphatase; present on admission; resolved -Trending down since admission, now within normal limits -Patient still has gallbladder but no other signs/symptoms of biliary obstruction Hyponatremia with AG of 23; present on admission; resolving -Urine osmolality and sodium within normal limits -No fluids as patient does not appear to be dry Microcytic hypochromic anemia; present on admission; stable -Presents with Hgb 9.5 that decreased to 8.1; MCV 80.8 and MCH 26.1 -Iron studies show mild iron deficiency, possibly secondary to acute reaction -Transfusion threshold less than 7 Type II diabetes; present on admission; ongoing -Last A1c was 6.1 last year -Home medication: Glipizide -Hold glipizide -Low dose correctional -Heart healthy/diabetic diet Metastatic prostate cancer-stable- Dr. Medina came to the hospital to see the patient on 01/17 Hypertension-on lisinopril, spironolactone, coreg and torsemide, continue to hold NATY-to bring in home CPAP Diastolic heart failure- on lisinopril, spironolactone, coreg and torsemide continue to hold Disposition: Patient will likely require 1-2 more days of inpatient management prior to discharge to [facility]. GI Prophylaxis: H2 chicho Resuscitation Status: CPR: Attempt Resuscitation Attending Statement The patient was seen and examined together with Dr. Brand on 01/19/2017 and I agree with the history, exam and plan as outlined in the note above. . Jose Martin Brand DO Jan 19, 2017 14:44 Omar Ewing MD Jan 20, 2017 08:21
--- NOTE | 2017-01-19 20:45 | NUR ---
Admit/transfer Pt arrived floor w/REANNA Wilde via w/c from [facility] ,report taken from Radha Lanza RN Dx was GLF, Anemia, afib, currently still a-fib 90's, Imaging was negative for injury, plan observe overnight possibly d/c yaa w/outpt or in home P.T. , Orientated to room/situation
--- NOTE | 2017-01-19 21:32 | NUR ---
Transfer Patient transferred to [facility] room 250-1 at approx. 2040 via wheelchair; all belongings transferred with patient. Report given to Jon Whalen RN.
[2017-01-20 01:07] VITALS: BP 134/74; PULSE 83; RESP 20; O2SAT 98
[2017-01-20 05:50] VITALS: BP 124/73; PULSE 74; RESP 18; O2SAT 96
[2017-01-20 06:05] VITALS: PULSE 84
[2017-01-20 06:49] LABS: Mean Corpuscular Hemoglobin 25.1 pg (27.0-35.0); Mean Corpuscular Volume 80.5 fL (81-100)
[2017-01-20] MEDS: Insulin LISPRO 300 Unit/3 mL Inj SUBQ SCH ×2 (07:50→12:00)
--- NOTE | 2017-01-20 08:22 | NUR ---
Telemetry Clarification: Sinus Rhythm Patient has been in Sinus Rhythm since admit. Please refer to telemetry documentation: p waves marked out. PASTORA hampton.
[2017-01-20] MEDS: Potassium Chloride 20 mEq SR Tablet PO SCH (09:25)
[2017-01-20 09:58] VITALS: PULSE 77
--- NOTE | 2017-01-20 10:48 | NUR ---
Morning Rounds Staffed patient's case with Dr. Campuzano and social work. harvest worker field crop stated patient has been accepted at [facility], stated she has spoken with patient about [facility]Rehab and the option for Hospice. harvest worker field crop stated patient may need further discussion with MD to explain treatment options. MD stated she will speak with patient, as his condition does not have much in the way of treatment options for his cancer. Possible discharge today, but MD will speak with patient about rehab vs hospice.
[2017-01-20 11:05] VITALS: BP 109/66; PULSE 76; RESP 14; O2SAT 95
--- NOTE | 2017-01-20 11:06 | PCM.DIMED ---
Discharge Instructions Date of Service Jan 20, 2017 Dates of Hospitalization Jan 17, 2017 at 03:35 Discharge Diagnosis Discharge Diagnosis Ground level fall with back pain, metastatic prostate carcinoma Diet Discharge Diet: Heart Healthy Activity Discharge Activity: Other (progress as tolerated with physical therapy) Rosalva Campuzano MD Jan 20, 2017 11:06
[2017-01-20] MEDS ORDERED: BACL10TA PO (11:10)
[2017-01-20] MEDS ORDERED: SENN-133 PO (11:10)
[2017-01-20] MEDS ORDERED: POLY17PO6 PO (11:10)
[2017-01-20] MEDS ORDERED: Al Hydrox/Mg Hydrox/Simeth PO (11:10)
[2017-01-20] MEDS ORDERED: ONDA4TAB6 PO (11:10)
[2017-01-20] MEDS ORDERED: OXYC-530 PO (11:10)
--- NOTE | 2017-01-20 11:13 | NUR ---
Social Work- Discharge/Multidisciplinary Rounds Data: EMR reviewed. Pt is on day 3 of hospitalization. Acknowledged hospice order from MD. SAMARA met with pt prior to multidisciplinary rounds and discussed hospice vs. rehab with pt. Explained differences of plan, differences in discharge options. Pt expressed some uncertainty regarding his cancer treatment options. At the end of this conversation pt expressed a desire to get stronger to return home as he does not want to be in a facility at the end of his life. Pt was not agreeable to hospice infovisit at this time but is aware that he can access hospice as an outpt at a later time. Pt requested DPOA paperwork, CLOTH CUTTING INSPECTOR provided pt with this information. Discussed pt in multidisciplinary rounds-- SW requested MD clarify pt's treatment options as pt expressed some uncertainty during earlier conversation. Pt is not being treated for any acute needs at this time, ready for discharge. SAMARA followed up with pt after MD spoke with him and he confirmed that [facility] is his preferred plan for discharge. Pt wants to rehab prior to returning home. T/C to Catina at [facility] regarding pt's discharge. Catina is agreeable to accepting pt today. SAMARA created packet and faxed orders. Paperwork in chart, PASRR placed in packet. Catina arranged transportation via wheelchair van for 1430. T/C to pt's SO Génesis Fraire [phone] and Génesis's daughter Amita (they were together on the phone) informing them of patient's discharge. Answered questions to their stated satisfaction. Assessment: Pt for whom SNF is medically necessary Plan: Pt to discharge to [facility] via wheelchair van at 1430. RN, pt/family, [facility] all updated and agreeable to plan. No additional d/c needs. Renuka Smith, CLOTH CUTTING INSPECTOR
--- NOTE | 2017-01-20 11:43 | PCM.DC.MED ---
Discharge Summary Date of Service Jan 20, 2017 Dates of Hospitalization Date of Hospital Admission Jan 17, 2017 at 03:35 Date of Discharge: Jan 20, 2017 Providers: Admitting Physician: Federico Gottlieb MD Primary Care Physician: Wilian,[facility] Residency Attending Physician: Rosalva Campuznao MD Diagnosis at Time of Discharge Diagnosis at Time of Discharge Ground level fall with back pain, metastatic prostate carcinoma Consultations Oncology Procedures XRay, CTs & MRIs Patient Name: ERIBERTO SALCEDO MR#: [id number] Location: PSYCHIATRIC Ordering Phys: Jose Martin Brand DO Date of Service: 01/17/17 1139 PROCEDURE: X-RAY LEFT HIP COMPLETE, MINIMUM TWO VIEWS ([id number]) INDICATIONS: fall TECHNIQUE: 2 views of the hip were acquired. COMPARISON: [facility], CT, CT CHEST ABD PELVIS W CON, 07/20/2016, 10:48. [facility], NM, NM BONE SCAN WHOLE BODY, 07/20/2016, 11:18. [facility], CR, XR HIP 2VW LT, 01/04/2015, 13:40. FINDINGS: Bones: No fractures or dislocations. Blastic appearance of the left obturator ring. The visualized pelvic ring appears intact. Moderate joint narrowing with periarticular osteophyte formation. Soft tissues: No suspicious soft tissue calcifications or masses. Vascular calcifications indicate atherosclerosis. IMPRESSION: No displaced fracture seen. If there is continued pain, followup exam or additional imaging such as MRI or CT could be performed for further assessment. Blastic appearance of the left obturator ring fracture consistent with prostatic bony metastasis as noted on prior imaging. Dictated by: Nabeel Hanley [facility] Interpreted: Sheila Muñoz MD on 01/17/2017 at 13: 23 Approved by: Sheila Muñoz M.D. on 01/17/2017 at 16:07 Patient Name: ERIBERTO SALCEDO MR#: [id number] Location: PSYCHIATRIC Ordering Phys: Jg Joseph MD Date of Service: 01/16/17 2135 PROCEDURE: CT BRAIN WITHOUT CONTRAST ([id number]) INDICATIONS: back pain, syncope, hypotension, pallor TECHNIQUE: Noncontrast 4.5 mm thick angled axial sections acquired from the foramen magnum to the vertex, with coronal reformats. COMPARISON: None. FINDINGS: Image quality: Excellent. CSF spaces: Basal cisterns are patent. No extra-axial fluid collections. The ventricles are symmetric in size and shape. Brain: No intracranial bleeds or masses. There is cerebral volume loss for age , with resultant ventricular and sulcal prominence. There are periventricular and deep white matter chronic small vessel ischemic changes. There is intracranial internal carotid artery atherosclerosis. Skull and face: Calvarium and visualized facial bones appear intact, without suspicious lesions. Sinuses: Visualized sinuses and mastoids are clear. IMPRESSION: Mild microvascular atherosclerotic change in the deep white matter of each hemisphere, and no acute disease is found. No trauma after syncope is seen. Note: These findings are concordant with the preliminary interpretation. Dictated by: Cliff Gustafson M.D. on 01/17/2017 at 8:05 Approved by: Cliff Gustafson M.D. on 01/17/2017 at 8:05 PROCEDURE: US ABDOMEN INDICATIONS: elevated alk phos with mets TECHNIQUE: Real-time scanning was performed of the abdominal and retroperitoneal organs, with image documentation. COMPARISON: [facility], CT, CT CHEST ABD PELVIS W CON, 07/20/2016, 10:48. [facility] Ultrasound, US, ABDOMEN SONOGRAM, 09/02/2013, 8: 00. FINDINGS: Liver length: 17.21 cm Gallbladder Wall Thickness: 3.0 mm CHD: 3.10 mm CBD: 3.30 mm Spleen length: 12.49 cm Right kidney length: 11.08 cm Left kidney length: 10.75 cm Aorta(Mid): 1.79 cm Aorta(Distal): 1.78 cm RCIA: 1.0 cm LCIA: 0.9 cm Liver: Liver is normal in size and homogeneous in echotexture. 2 solid mass is again seen within the liver similar to prior CT scan the largest measuring 5.3 x 5.3 cm and the smaller 4.3 x 3.7 cm. Gallbladder: No gallstones identified. Normal gallbladder wall. No pericholecystic fluid. Negative sonographic Garber sign. Biliary ducts: Intrahepatic bile ducts are non-dilated. Extrahepatic bile duct caliber is normal. Normal is 6-7 mm or less in diameter, or 10 mm or less post-cholecystectomy. Pancreas: Not well-seen. Spleen: Spleen is normal in size and homogeneous in echotexture. Kidneys: Kidneys are normal in size and echotexture. No hydronephrosis or nephrolithiasis. No solid masses. Aorta: Visualized aorta is normal in caliber at less than 3 cm. Iliacs: Proximal common iliac arteries are normal in caliber at less than 2.5 cm. IVC: Intrahepatic inferior vena cava is patent. Miscellaneous: No free abdominal fluid. Right pleural effusion redemonstrated. IMPRESSION: 1. Hepatic metastatic lesions redemonstrated similar to prior CT scan in this patient with history of metastatic prostate cancer. 2. Small right pleural effusion. Dictated by: Nabeel Hanley RRBryon Interpreted: Sheila Muñoz MD on 01/17/2017 at 10: 23 Approved by: Sheila Muñoz M.D. on 01/17/2017 at 15:51 PROCEDURE: CT ANG CHEST/ABD W/WO CONTRAST ([id number]) INDICATIONS: back pain, syncope, hypotension, pallor TECHNIQUE: Precontrast 5 mm thick sections acquired from the lung apices to the iliac crests. After the administration of intravenous contrast, 3 mm thick sections again acquired from the lung apices to the iliac crests. 3-dimensional maximum intensity projection (MIP) oblique sagittal and coronal reformats were then acquired, and/or 3-dimensional volume rendering reformats. For radiation dose reduction, the following was used: automated exposure control. COMPARISON: [facility], CT, CT CHEST ABD PELVIS W CON, 07/20/2016, 10:48. [facility], CT, CT CHEST W CON, 05/18/2015, 15:21. CT, CHEST WITH CONTRAST, 11/22/2010, 7:25. FINDINGS: Image quality: Excellent. AORTA: Intramural hematoma: Absent. Maximum hematoma thickness: Not applicable. Focal contrast enhancement: Intramural blood pool (< 2 mm neck or imperceptible communication with aortic lumen): Absent. Ulcer-like projection (broad communication with aortic lumen > 3 mm): Absent. Dissection: Absent. Fady classification: Not applicable. Maximum aortic diameter: 4.6 cm. [If Rogers A dissection, > 5.0 cm has a poorer prognosis. If Rogers B dissection, > 4.0 cm has a poorer prognosis.] Periaortic hematoma: Absent. CHEST: Lungs and pleura: Small bilateral pleural fluid collections noted. Atelectasis noted in the dependent portions of the lung bases. Central and peripheral airways are patent and normal in caliber. Mediastinum: Heart size is normal. No pericardial effusion. Atherosclerotic calcifications are noted in the aorta, great vessels and the coronary vasculature. Right paratracheal ahmet mass has increased in size compared to measuring approximately 2.3 x 2.7 cm in the current study (1.9 x 2.3 cm previously). No hilar adenopathy by size criteria. Central pulmonary arteries are normal in size. Esophagus is normal in caliber. No hiatal hernias. Bones and chest wall: Left chest wall Port-A-Cath is stable in appearance. No axillary adenopathy by size criteria. Thyroid gland is within normal limits are visualized in. No suspicious bony lesions. No vertebral body compression fractures. ABDOMEN: Vasculature: Celiac trunk and mesenteric arteries are patent. Renal arteries are also patent. Solid organs: Liver and spleen are normal in size. Heterogeneously enhancing mass in right hepatic dome is not significantly changed in size compared to 07/20. Hepatic cyst is stable compared to prior exams. No new hepatic lesions are identified. Gallbladder is within normal limits. Biliary system is non dilated. Pancreas enhances normally. No adrenal nodules. Both kidneys are normal in size and enhancement, without hydronephrosis. Peritoneum and bowel: No free fluid or air. Bowel loops are normal in caliber and wall thickness. Nodes and vessels: No retroperitoneal or mesenteric adenopathy by size criteria. Inferior vena cava is normal in morphology. Bones: Multiple sclerotic lesions scattered throughout the osseous skeleton both known skeletal metastatic disease not definitely changed compared to . No vertebral body compression fractures. Miscellaneous: No ventral hernias. IMPRESSION: 1. No evidence of aortic dissection or aortic aneurysm. 2. Small bilateral pleural effusions. 3. Right paratracheal mediastinal lymphadenopathy increased in size compared to 07/20/16. 4. Extensive skeletal metastatic disease not significantly changed compared to . 5. Heterogeneously enhancing lesion in the right hepatic dome is stable compared to prior examination. 6. Atherosclerosis including dense atherosclerotic calcifications in the coronary vasculature. Dictated by: Susan Mistry MD, PhD on 01/17/2017 at 9:03 Approved by: Susan Mistry MD, PhD on 01/17/2017 at 9:15 Cardiac Echo Impression Echocardiogram Report Name: ERIBERTO SALCEDO DStudy Date : 09/25/2016 Height: 70 in Hospital Exam Location: [facility] Weight: 245 lb Gender: Male BSA: 2.3 m2 : 1935 Age: 80 yrs BP: 118/56 mmHg Reason For Study: Arrhythmia Performed By: Shayy Robison Referring Physician: EZEKIEL KIM Interpretation Summary 1) Normal left ventricular thickness, size, wall motion, and systolic function (EF 60-65%). 2) Normal right ventricular size and function. 3) Age related calcification of the aortic and mitral valves but no significant stenosis or regurgitation present. 4) Normal pulmonary artey pressures. 5) Moderate dilated ascending aorta (diameter 4.4cm), similar to prior study dated 06/16/2015. 6) Compared to the Echo done 06/16/2015, no significant change. Brief History 81-year-old gentleman with ten-year history of metastatic prostate cancer, type II diabetes, hypertension, NATY, and diastolic heart failure who presents to emergency department due to a ground-level fall suffered yesterday evening (01/16 ) while he was cleaning his bathroom. Per the patient he was bent over while scrubbing the toilet at which time his back spasmed and he was unable to become upright again. He states he then fell onto his back and hit his head, with a bouncing off the floor and door. He was then unable to get off the floor and his daughter called EMS. He denies ever losing consciousness, lightheadedness, dizziness, diplopia, chest pain or shortness of breath, or new neurological symptoms. Patient states he is not had a fall within the last year. In the emergency department the patient was given half a liter of normal saline ; CT of the head was negative for hemorrhage and CT abdomen and pelvis are available in appropriate section. Blood work demonstrated a white count of 11, decreasing hematocrit from 9.5-8.1 with a microcytic component, and normal platelets. Patient had a very mild troponin elevation, BMP and nearly 2000, and alkaline phosphatase that has doubled since his previous labs on 01/14. Hospital Course 81-year-old gentleman with ten-year history of metastatic prostate cancer, type II diabetes, hypertension, NATY, and diastolic heart failure who presents to emergency department due to a ground-level fall suffered yesterday evening (01/16 ) while he was cleaning his bathroom. Ground-level fall without syncope; present admission; stable - Patient had a fall at home with his head hitting the wall in the shower door - CT head negative for hemorrhage - CT of the chest abdomen revealed no dissection or aneurysm - Neurochecks within normal limits - Orthostatics normal - PT saw the patient and states that fall was likely due to chronic back problem , and the patient's story is consistent with this. - Leukocytosis likely due to stress reaction secondary to fall - Hip x-ray obtained on 01/17 due to tenderness to palpation of the left hip. Imaging not suggestive of fracture. - Patient will likely require short-term rehabilitation in a assisted facility prior to discharge home. -This is been arranged to be done at [facility] with daily PT New onset a-fib with mildly elevated troponin; present on admission; ongoing -Denies prior hx of a-fib -Troponins trending down -EKG consistent with A-fib and RBBB -Currently rate controlled -Discussed with Dr. Freitas on 01/18 his opinion on anticoagulation in this case , he stated that anticoagulation should be based on the patient's ability to progress through rehabilitation -This may also be a discussion with palliative care as the patient has long been diagnosed with metastatic prostate cancer, and the current oncologic therapies appear to be no longer effective. - Dr. Freitas recommends discontinuing Xtandi at this point, he will continue to follow-up as an outpatient. -Given his recent fall will go ahead and put him on ASA 81 mg by mouth daily but not use warfarin therapy Back pain second to spasm; present on admission; ongoing - Pain is improved since admission - Not on outpatient pain medications - Oxycodone for pain as needed - Consider treatment with baclofen if needed -We will need continuing physical therapy at near her [place] for strengthening and gait stability Elevated alkaline phosphatase; present on admission; resolved -Trending down since admission, now within normal limits -Patient still has gallbladder but no other signs/symptoms of biliary obstruction Hyponatremia with AG of 23; present on admission; resolving -Urine osmolality and sodium within normal limits -No fluids as patient does not appear to be dry in fact appears slightly volume overloaded so we will continue with his oral Lasix dosing at discharge Microcytic hypochromic anemia; present on admission; stable -Presents with Hgb 9.5 that decreased to 8.1; MCV 80.8 and MCH 26.1 -Iron studies show mild iron deficiency, possibly secondary to acute reaction -Transfusion threshold less than 7 Type II diabetes; present on admission; ongoing -Last A1c was 6.1 last year -At discharge will go ahead and restart his low-dose oral hypoglycemic agent -Heart healthy/diabetic diet Metastatic prostate cancer-stable- Dr. Medina came to the hospital to see the patient on 01/17 Hypertension-on lisinopril, spironolactone, coreg and torsemide, continue to hold NATY-to bring in home CPAP Diastolic heart failure- on lisinopril, spironolactone, coreg and torsemide continue to hold Exam Vital Signs (Last) Date Time Temp Pulse Resp B/P Pulse Ox O2 Delivery O2 Flow Rate FiO2 01/20/17 11:05 36.8 76 14 109/66 95 01/20/17 05:50 Room Air Exam Constitutional: Elderly male in no acute distress Head: Normocephalic atraumatic Chest: Clear to auscultation Cor: Regular rate and rhythm S1-S2 Abdomen: Soft nontender bowel sounds present Extremities: 1+ bilateral pedal edema Skin: No rashes Psych: Mood and affect are appropriate Neuro: Alert and oriented 3, motor strength is intact bilaterally Test 01/16/17 21:36 01/16/17 21:41 01/17/17 00:00 01/17/17 04:15 Pro-B-Type Natriuretic Peptide 1989pg/mL (0-486) Prothrombin Time 12.0sec (8.1-12.5) Prothromb Time International Ratio 1.12ratio Urine Color Yellow (YELLOW) Urine Appearance Clear (CLEAR,HAZY) Urine pH 5.5 (5.0-8.0) Urine Specific [place] 1.010 (1.003-1.035) Urine Protein Tracemg/dL (NEG,TRACE) Urine Glucose (UA) Negativemg/dL (NEGATIVE) Urine Ketones Tracemg/dL (NEGATIVE) Urine Occult Blood Negative (NEGATIVE) Urine Nitrite Negative (NEGATIVE) Urine Bilirubin Negative (NEGATIVE) Urine Urobilinogen Normalmg/dL (NORMAL) Urine Leukocyte Esterase Negative (NEGATIVE) Urine RBC 0-2/hpf (0-2) Urine WBC 0-5/hpf (0-5) Urine Epithelial Cells Few/hpf (NONE-MOD) Urine Crystals None seen (NONE SEEN) Urine Bacteria Few/hpf (NONE-FEW) Urine Hyaline Casts None/lpf (NONE) Urine Granular Casts None seen (NONE SEEN) Urine Waxy Casts None seen (NONE SEEN) Urine Red Blood Cell Casts None seen (NONE SEEN) Urine White Blood Cell Casts None seen (NONE SEEN) Urine Mucus None seen (None Seen) Urine Trichomonas None seen (NONE SEEN) Urine Yeast None (NONE SEEN) Urinalysis Comment None Urine Culture Reflexed Not indicated Hold Urine Received (Received) Neutrophils (%) (Auto) 66.3% (40-74) Lymphocytes (%) (Auto) 22.0% (14-46) Monocytes (%) (Auto) 11.0% (4-12) Eosinophils (%) (Auto) 0.2% (0-5) Basophils (%) (Auto) 0.1% (0-3) Urine Osmolality 580mOs/kH2O (250-1200) Urine Random Sodium 10mEq/L Osmolality 278 (275-300) Iron Level 34ug/dL (35-150) Total Iron Binding Capacity 183ug/dL (250-450) Percent Iron Saturation 19%sat (15-50) Unsaturated Iron Binding 149.2ug/dL Ferritin 2000ng/mL (30-400) Test 01/18/17 04:15 01/20/17 06:25 Lactic Acid Level 1.1mmol/L (0.4-2.0) Phosphorus Level 2.1mg/dL (2.5-4.9) Magnesium Level 2.3mg/dL (1.6-2.6) Troponin T 0.011ug/L (0.0-0.011) Procalcitonin 0.43ng/mL (0.00-0.08) White Blood Count 7.3th/mm3 (3.8-10.1) Red Blood Count 3.39mil/mm3 (4.40-5.80) Hemoglobin 8.5g/dL (13.8-17.2) Hematocrit 27.3% (41.0-50.0) Mean Corpuscular Volume 80.5fL (81-100) Mean Corpuscular Hemoglobin 25.1pg (27.0-35.0) Mean Corpuscular Hemoglobin Concent 31.1% (32.0-37.0) Red Cell Distribution Width 18.7% (12.3-15.4) Platelet Count 327bil/L (150-400) Sodium Level 128mEq/L (134-144) Potassium Level 4.4mEq/L (3.5-5.2) Chloride Level 93mEq/L (97-108) Carbon Dioxide Level 21mmol/L (18-29) Blood Urea Nitrogen 19mg/dL (8-27) Creatinine 0.65mg/dL (0.76-1.27) Estimat Glomerular Filtration Rate 126mL/min (>59) Glucose Level 174mg/dL (60-99) Calcium Level 7.9mg/dL (8.5-10.1) Total Bilirubin 0.4mg/dL (0.0-1.2) Aspartate Amino Transf (AST/SGOT) 13U/L (0-50) Alanine Aminotransferase (ALT/SGPT) 7U/L (0-44) Alkaline Phosphatase 132U/L (25-160) Total Protein 5.1g/dL (6.4-8.4) Albumin 2.8g/dL (3.4-5.0) Discharge Medications Discharge Medications Atorvastatin (Lipitor) 10 Mg Tab 10 MG PO HS (Reported) Carvedilol (Coreg) 6.25 Mg Tablet 6.25 MG PO DAILY (Reported) Furosemide (Furosemide) 40 Mg Tablet 40 MG PO DAILY (Reported) Glipizide ER (Glipizide ER) 2.5 Mg Tab.er.24 2.5 MG PO MORNING (Reported) with breakfast. Lisinopril (Lisinopril) 2.5 Mg Tablet 2.5 MG PO DAILY (Reported) Vantage-3 Fatty Acids (Fish Oil) 500 Mg Capsule Unknown Dose PO DAILY (Reported) clam oil supplement Potassium Chloride (Potassium Chloride) 10 Meq Tab.er.prt 20 MEQ PO DAILY ( Reported) TAKE WITH FOOD Prednisone (PredniSONE) 10 Mg Tablet 10 MG PO DAILY (Reported) As needed ([Al Hydrox/Mg Hydrox/Simeth]) 30 ML SUSP 30 ML PO Q6H PRN PRN For Dyspepsia or Heartburn Prescribed by: ROSALVA CAMPUZANO MD Baclofen (Baclofen) 10 Mg Tablet 10 MG PO TID PRN PRN For Spasm Prescribed by: ROSALVA CAMPUZANO MD Ondansetron (Zofran) 4 Mg Tablet 4 MG PO Q4H PRN PRN For Nausea Prescribed by: ROSALVA CAMPUZANO MD Polyethylene Glycol 3350 (Miralax) 17 Gm Powd.pack 17 GM PO DAILY PRN PRN For Constipation Prescribed by: ROSALVA CAMPUZANO MD Sennosides (Senna) 8.6 Mg Tablet 17.2 MG PO BID PRN PRN For Constipation Prescribed by: ROSALVA CAMPUZANO MD Spironolactone/HCTZ 25-25 mg (Spironolactone/HCTZ 25-25 mg) 1 Each Tablet 1 TABLET PO DAILY PRN PRN For Urinary Retention (Reported) oxyCODONE (oxyCODONE) 5 Mg Tablet 5-10 MG PO Q4H PRN PRN For Moderate Pain Prescribed by: ROSALVA CAMPUZANO MD Followup Plan Disposition: [facility] Discharge Diet: Heart Healthy Discharge Activity: Other (progress as tolerated with physical therapy) Time spent 60 minutes copies to: Scott Medina MD; [facility] Res[facility] Rosalva Campuzano MD Jan 20, 2017 11:43
--- NOTE | 2017-01-20 12:17 | NUR ---
Discharge Prescriptions Contacted Dr. Campuzano with the following cook page: Patient is discharging, but the only prescription we have received is for Oxycodone. Thank you. Christine [facility] ext [phone]
--- NOTE | 2017-01-20 13:50 | NUR ---
Report to [facility] Called [facility] and spoke with PASTORA Wilder to provide report. Provided all known history, last blood glucose values and times of medications last given. Tina stated she did not have any additional questions at this time.
== END 2017-01-20 14:37 | DRG 309 ==
LOC: SED 20:54 → EDUNIT# 20:54 → EDBD 20:54 → PCC 01-17 03:35 → MOC 01-19 20:46
PROVIDERS: ADMIT Hospitalist; ATTEND Specialist
DX: I48.91 Unspecified atrial fibrillation (principal); E87.1 Hypo-osmolality and hyponatremia; C79.51 Secondary malignant neoplasm of bone; I50.30 Unspecified diastolic (congestive) heart failure; I45.10 Unspecified right bundle-branch block; D50.8 Other iron deficiency anemias; C61 Malignant neoplasm of prostate; M54.9 Dorsalgia, unspecified; E11.9 Type 2 diabetes mellitus without complications; R74.8 Abnormal levels of other serum enzymes; G47.33 Obstructive sleep apnea (adult) (pediatric); I11.0 Hypertensive heart disease with heart failure; M25.552 Pain in left hip; M62.830 Muscle spasm of back; W01.198A Fall on same level from slipping, tripping and stumbling with subsequent striking against other object, initial encounter; Y93.E9 Activity, other interior property and clothing maintenance; Y92.002 Bathroom of unspecified non-institutional (private) residence as the place of occurrence of the external cause; Y99.8 Other external cause status; Z79.84 Long term (current) use of oral hypoglycemic drugs; Z79.52 Long term (current) use of systemic steroids